=== PATIENT | male | born 1940 | race American Indian/Alaskan Native ===

== ENCOUNTER 2018-01-29 11:09 | Day surgery (SDC) | payer MEDICARE ==
[~2018-01-29 11:09] MED LIST: ANCEF/STERILE WATER 2 GM/20 ML IV NR; MARCAINE-EPI 0.5%-1:200,000 INFILTRATI ONE
--- NOTE | 2018-01-29 13:06 | Anesthesia Consultation ---
Anesthesia Consult and Med Hx Date of service: 01/29/18 - Airway Anesthetic Teeth Evaluation: Good ROM Head & Neck: Adequate Mental/Hyoid Distance: Adequate Mallampati Class: Class II Intubation Access Assessment: Probably Good - Pulmonary Exam CTA: Yes - Cardiac Exam Cardiac Exam: RRR - Pre-Operative Health Status ASA Pre-Surgery Classification: ASA4 Proposed Anesthetic Plan: General - Pulmonary Hx Smoking: Yes (quit 1993) Hx Asthma: No Hx Respiratory Symptoms: No COPD: No - Cardiovascular System Hx Hypertension: Yes Hx Heart Attack/AMI: No (>4mets exercise tolerance) - Central Nervous System Hx Seizures: No CVA: No - Gastrointestinal Hx Gastroesophageal Reflux Disease: No - Endocrine Hx End Stage Renal Disease: Yes (MWF HD; last HD 01/28) Hx Liver Disease: No Hx Non-Insulin Dependent Diabetes: Yes Hx Hypothyroidism: Yes - Hematic Hx Anemia: Yes - Additional Comments Anesthesia Medical History Comments: Patient ate a boiled egg with water at 0530. Surgery scheduled 1330 or later. OK to proceed as scheduled. Will plan GETA.
--- NOTE | 2018-01-29 13:06 | Anesthesia Day of Surgery ---
Anesthesia Day of Surgery - Day of Surgery Patient Examined: Yes Patient H&P Reviewed: Yes Patient is NPO: Yes (NPO solid [id number])
[2018-01-29] MEDS ORDERED: SUBLIMAZE IV PRN (13:07)
[2018-01-29] MEDS ORDERED: QUELICIN ONE (13:56)
[2018-01-29] MEDS ORDERED: SUBLIMAZE ONE (13:56)
[2018-01-29] MEDS ORDERED: XYLOCAINE MPF 2% ONE (13:56)
[2018-01-29] MEDS ORDERED: DIPRIVAN 10 MG/ML IV ONE (13:56)
[2018-01-29] MEDS ORDERED: NACL 0.9% 1000 ML 1,000 ML IV SCH (14:00)
[2018-01-29] MEDS ORDERED: VERSED IV NR (14:00)
[2018-01-29] MEDS ORDERED: MARCAINE 0.5% INFILTRATI ONE (14:20)
[2018-01-29] MEDS ORDERED: MARCAINE 0.25% INFILTRATI ONE (14:20)
--- NOTE | 2018-01-29 14:40 | Operative Report ---
Operative Report Operative Report: Date of procedure: 01/29/2018 Pre-operative diagnosis: Malfunctioning/infected peritoneal dialysis catheter Post-operative diagnosis: Same Procedure name(s): Removal of peritoneal dialysis catheter Surgeon: Virgilio Oconnell MD Content Writer: None Anesthesia: Mac, 0.25% Marcaine/1% lidocaine mixed EBL: Minimal Complications: None Instrument Count: Correct Indications: This is a 77-year-old patient with a history of malfunctioning/ infected peritoneal dialysis catheter. The appliance required removal to allow healing. The patient was offered the above-named procedures possible treatment modality area the risks and benefits of discussed until all questions were answered. There was subsequently brought to the OR. Findings: None significant Procedure: We reviewed the informed consent. The patient was then placed supine upon the table. After adequate anesthesia was reached, the patient was then prepped and draped in the usual sterile fashion. We infiltrated local anesthetic at the site of the cuff insertion through the abdominal wall. Using a 15 blade, we made a 3 cm incision. Using electrocautery we dissected down to the peritoneal dialysis catheter. At this time the catheter was grasped using hemostats. We then dissected free the distal cuff from the surrounding soft tissue using electrocautery. The proximal cuff was then dissected free from the anterior rectus sheath and surrounding muscle. The catheter was then cut distal to the most distal cuff and the dialysis catheter was completely removed and handed off the table. The subcutaneous external portion was also removed. The defect within the anterior rectus sheath was then closed using a 0 Vicryl on a UR 6 needle. We irrigated the wound, and then closed the subcutaneous tissues using a 3-0 Vicryl. A 4-0 Monocryl was used to close the skin. The wounds bandaged sterilely, the patient tolerated the procedure well, and was transferred to recovery room in no apparent distress.
--- NOTE | 2018-01-29 14:43 | Short Stay Summary ---
Short Stay Documentation Date of service: 01/29/18 - History H&P: obtained from office - Allergies and Medications Current Medications: Allergies No Known Drug Allergies Allergy (Verified 01/29/18 12:51) Unknown Home Medications Medication Instructions Recorded Confirmed Last Taken Type AtorvaSTATin [Lipitor] 40 mg PO QHS 01/29/18 01/29/18 01/28/18 History Calcium Acetate 667 mg PO QDAY 01/29/18 01/29/18 Unknown History Carvedilol [Coreg] 6.25 mg PO BID 01/29/18 01/29/18 01/28/18 21:00 History Ezetimibe [Zetia] 10 mg PO QDAY 01/29/18 01/29/18 01/28/18 History Furosemide [Lasix TAB] 40 mg PO BID 01/29/18 01/29/18 01/28/18 History Terazosin HCl 10 mg PO BID 01/29/18 01/29/18 01/28/18 History Vit B Complx C/Folic Acid/Zinc 0.8 mg PO QDAY 01/29/18 01/29/18 01/28/18 History [Dialyvite 800-Zinc 15 Tab] amLODIPine [Norvasc] 10 mg PO QDAY 01/29/18 01/29/18 01/28/18 History Active Medications Cefazolin Sodium (Ancef/Sterile Water 2 Gm/20 Ml) 2 gm IV PREOP NR Stop: 01/29/18 23:59 Fentanyl (Sublimaze) 50 mcg IV Q15MIN PRN PRN Reason: Pain , Severe (7-10) Stop: 01/29/18 23:08 Sodium Chloride (Nacl 0.9% 1000 Ml) 1,000 mls @ 42 mls/hr IV DIRECT ROCKY Last Admin: 01/29/18 13:52 Dose: 42 mls/hr Midazolam HCl (Versed) 2 mg IV PREOP NR Stop: 01/29/18 23:59 Last Admin: 01/29/18 13:52 Dose: 2 mg - Brief post op/procedure progress note Pre-op diagnosis: see operative note Condition: stable - Disposition Condition at discharge: Stable Disposition: DC-01 TO HOME OR SELFCARE Short Stay Discharge Plan Diet: renal Follow up with: CHERELLE MCCURDY MD [Primary Care Provider] - 7 Days RUDOLPH HOROWITZ MD [Staff Physician] - 7 Days Prescriptions: traMADol [Ultram 50 MG tab] 50 mg PO Q4HR PRN #30 tablet PRN Reason: Pain
[2018-01-29] MEDS ORDERED: ROBINUL ONE (14:46)
[2018-01-29 17:23] VITALS: BP 133/68
== END 2018-01-29 11:10 | disposition home or self-care (01) ==
LOC: OR 11:09
PROVIDERS: ATTEND Surgery
DX: T82.7XXA Infection and inflammatory reaction due to other cardiac and vascular devices, implants and grafts, initial encounter (principal); E11.22 Type 2 diabetes mellitus with diabetic chronic kidney disease; I12.0 Hypertensive chronic kidney disease with stage 5 chronic kidney disease or end stage renal disease; E78.00 Pure hypercholesterolemia, unspecified; N18.6 End stage renal disease; E03.9 Hypothyroidism, unspecified; D64.9 Anemia, unspecified; Z79.899 Other long term (current) drug therapy; Z72.89 Other problems related to lifestyle; Z96.653 Presence of artificial knee joint, bilateral; Z87.891 Personal history of nicotine dependence; Z98.890 Other specified postprocedural states; Y83.2 Surgical operation with anastomosis, bypass or graft as the cause of abnormal reaction of the patient, or of later complication, without mention of misadventure at the time of the procedure
CPT/HCPCS: 49422; 82803; 82962; 88302; J0330; J0690; J2250; J2704; J3010; J7030